=== PATIENT | female | born 1995 | race American Indian/Alaskan Native ===

== ENCOUNTER 2022-01-05 20:34 | Emergency (ER) | payer OTHER ==
[2022-01-06] MEDS ORDERED: HYDROcodone/ACETAMINOPHEN 5-325 MG TAB PO STA (02:46)
[2022-01-06 03:45] LABS: HCG Qualitative,Urine Negative (Negative)
--- NOTE | 2022-01-06 04:04 | XRay Report ---
Lumbar spine 2 views INDICATION: Low back pain after injury IMPRESSION: No acute fracture or subluxation visualized. Signer Name: Rodney Trujillo MD Signed: 01/06/2022 3:59 AM Workstation Name: [id number]
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
[2022-01-06 05:47] VITALS: BP 136/81
== END 2022-01-06 05:47 | disposition home or self-care (01) ==
LOC: ED 20:34
DX: M79.10 Myalgia, unspecified site (principal); V89.2XXA Person injured in unspecified motor-vehicle accident, traffic, initial encounter; Y93.89 Activity, other specified; Y92.89 Other specified places as the place of occurrence of the external cause; Y99.8 Other external cause status
CPT/HCPCS: 72100; 81025; 99283